=== PATIENT | male | born 1985 | race Caucasian/White ===

== ENCOUNTER 2019-08-26 06:26 | Emergency (ER) | payer OTHER, BC, SELFPAY ==
--- NOTE | ~2019-08-26 | XR_ITS ---
XR humerus RT DATE: 08/26/2019 07:41 INDICATION: Fall. Mid arm pain. TECHNIQUE: 3 views COMPARISON: None FINDINGS: No fracture, dislocation, periosteal reaction or bone destruction. Normal alignment at the shoulder and elbow joints. IMPRESSION: Negative Reviewed, dictated and finalized at location A. IMPRESSION: Negative
[2019-08-26 06:22] VITALS: BP 136/86; PULSE 92; RESP 18; TEMP 36.8; O2SAT 97
--- NOTE | 2019-08-26 07:34 | ED.UPPEXIN ---
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 He rates the pain 8 out of 10, and has difficulty moving his arm. He is getting off the forklift with his right hand on the handle, when his foot slipped so he grabbed the wall with his left hand, twisting the right arm. He suspects it is a tendon injury. He has no medical problems,takes no prescription medications. He has had numerous surgeries on his left eye, and several right inguinal hernia surgeries. He has no allergies. He has not been sick in the last week or 2. He is single. MD complaint: injury to: right Onset (ago): hour(s) Other Extremity Injury: Right: arm Other injuries: none Related Data Allergies Allergy/AdvReac Type Severity Reaction Status Date / Time No Known Allergies Allergy Mild Verified 08/26/19 07:47 Review of Systems Review of Systems: Narrative: CONSTITUTIONAL: Denies fever, chills, or sweats. EYES: Denies visual changes, redness, or discharge. ENT: Denies rhinorrhea, congestion, sore throat, or otalgia. CARDIOVASCULAR: Denies chest pain, palpitations, or edema. RESPIRATORY: Denies cough or dyspnea. GASTROINTESTINAL: Denies abdominal pain, nausea, vomiting, or diarrhea. GENITOURINARY: Denies dysuria or hematuria. SKIN: Denies rash or itching. MUSCULOSKELETAL: sore right arm and unable to move the elbow. NEUROLOGIC: Denies headache, numbness, or weakness. PSYCHIATRIC: Denies anxiety or depression. All systems reviewed & are unremarkable except as noted in HPI and below PMFSH Past Medical History Medical History (Updated 08/26/19 @ 07:49 by Karen Saucedo MD) History of inguinal hernia Inguinal hernia Surgical History Surgical History History of inguinal hernia repair Social History Social History (Updated 08/26/19 @ 07:45 by Karen Saucedo MD) Smoking status: Never smoker Alcohol intake: never Substance use: never Exam Narrative: Exam Narrative: GENERAL: Well-appearing, well-nourished, and in no acute distress.Red headed and freckles HEAD: Normocephalic, atraumatic. EYES: PERRLA and EOMI. ENT: Nares clear, no rhinorrhea or epistaxis. Mucous membranes moist. NECK: Supple. CHEST: Clear to auscultation. No respiratory distress. HEART: Regular rate and rhythm. No murmur heard. Normal peripheral pulses. ABDOMEN: Soft, nontender, nondistended, normal active bowel sounds. EXTREMITIES: Tenderness in the right upper arm and elbow, decreased range of motion right elbow. SKIN: Warm, dry, no rash. NEURO: No focal deficits. Alert and oriented x3. PSYCH: Normal mood and affect. Const: General: no acute distress Course Reevaluation(s) Reevaluation #1: Explained to the patient that he should wear the sling until seen by Ortho, he request nausea medicine to go with the Percocet, and a work note for a week. Date: 08/26/19 Time: 09:21 Vital Signs Vital signs: Vital Signs Temperature 98.2 F 08/26/19 06:22 Pulse Rate 92 08/26/19 06:22 Respiratory Rate 18 08/26/19 06:22 Blood Pressure 136/86 08/26/19 06:22 Pulse Oximetry 97 08/26/19 06:22 Temperature 98.1 F 08/26/19 08:48 Pulse Rate 81 08/26/19 08:48 Respiratory Rate 18 08/26/19 08:48 Blood Pressure 149/82 H 08/26/19 08:48 Pulse Oximetry 97 08/26/19 08:48 Procedures Orthopedic Splinting/Casting Injury #1: Splinting/Casting Date: 08/26/19 Splinting/Casting Time: 09:27 Side: right Upper Extremity Injury Location: upper arm Upper Extremity Immobilizer: sling/shoulder immobilizer Pre-Formed: sling Pre-Procedure Neuro Vascular Exam: normal Post-Procedure Neuro Vascular Exam: normal Discharge Plan Disch
[2019-08-26] MEDS: MORPHINE SULFATE 4 MG/ML INJ IV PUSH (07:43)
[2019-08-26 07:48] VITALS: BP 157/81; PULSE 87; RESP 16; TEMP 36.4; O2SAT 98
[2019-08-26 08:48] VITALS: BP 149/82; PULSE 81; RESP 18; TEMP 36.7; O2SAT 97
--- NOTE | 2019-08-26 08:49 | PC.NURSE ---
Patient is able to move arm at this time. Patient reached up to rub his nose with his right hand without grimace.
[2019-08-26 09:45] VITALS: BP 153/61; PULSE 79; RESP 18; TEMP 36.2; O2SAT 97
== END 2019-08-26 09:45 | disposition home or self-care (01) ==
PROVIDERS: Emergency Provider Emergency Medicine
DX: S46.211A Strain of muscle, fascia and tendon of other parts of biceps, right arm, initial encounter (principal); W24.0XXA Contact with lifting devices, not elsewhere classified, initial encounter
CPT/HCPCS: 73060; 96374; 99284; A4565; J2270

== ENCOUNTER 2019-09-13 07:26 | Outpatient (CLI) | payer OTHER, BC, SELFPAY ==
--- NOTE | ~2019-09-13 | MR_ITS ---
EXAMINATION: MR chest wo con DATE: 09/13/2019 09:02 INDICATION: Right upper arm injury and pain. TECHNIQUE: Magnetic resonance imaging (MRI) of the chest was performed without intravenous contrast. Sequences included axial, sagittal, and coronal T1-weighted FSE and PD-weighted FS FSE. COMPARISON: Right humerus radiographs 08/26/2019 FINDINGS: Bone alignment is normal. No fracture. The right pectoralis major and pectoralis minor musc les are normal. The rotator cuff muscle bellies are normal. The rotator cuff tendons are not well aditi luated. There is no hematoma, abnormal mass, or lymphadenopathy. IMPRESSION: 1. Normal right pectoralis major and minor muscles. Reviewed, dictated and finalized at location A.
== END 2019-09-13 07:27 | disposition home or self-care (01) ==
PROVIDERS: Visit Provider Orthopaedic Surgery
DX: M79.601 Pain in right arm (principal)
CPT/HCPCS: 71550

== ENCOUNTER 2019-09-19 20:19 | Outpatient (CLI) | payer OTHER, BC, SELFPAY ==
--- NOTE | ~2019-09-19 | MR_ITS ---
EXAMINATION: MR shoulder RT wo con DATE: 09/19/2019 20:59 INDICATION: Right shoulder pain. TECHNIQUE: Magnetic resonance imaging (MRI) of the right shoulder was performed without intravenous c ontrast. Sequences included axial PD-weighted FS FSE, coronal oblique PD-weighted FS FSE and T2-weigh miley FS FSE, and sagittal oblique T2-weighted FS FSE and T1-weighted FSE. COMPARISON: Right humerus radiographs 08/26/2019 FINDINGS: Coracoacromial arch: The acromion undersurface is flat in morphology (type I). The acromioclavicular joint is normal. Ther e is mild subacromial/subdeltoid bursitis. Rotator cuff: There is moderate supraspinatus and infraspinatus tendinopathy. Teres minor tendon is normal. Subscap ularis tendon is normal. No tear. The rotator cuff muscle bellies are normal. Biceps tendon and glenoid labrum: Biceps tendon is in bicipital groove. Intra-articular biceps tendon is normal. The glenoid labrum is normal. Fluid: There is no glenohumeral joint effusion. Bones/cartilage: Glenoid cartilage is normal. Humeral head cartilage is normal. IMPRESSION: 1. Moderate rotator cuff tendinopathy. No tear. 2. Mild subacromial/subdeltoid bursitis. Reviewed, dictated and finalized at location A.
== END 2019-09-19 20:20 | disposition home or self-care (01) ==
PROVIDERS: Visit Provider Orthopaedic Surgery
DX: M75.51 Bursitis of right shoulder (principal)
CPT/HCPCS: 73221

== ENCOUNTER 2020-06-11 03:41 | Emergency (ER) | payer OTHER, SELFPAY ==
--- NOTE | ~2020-06-11 | CT_ITS ---
EXAMINATION: CT abdomen pelvis wo con EXAM DATE: 06/11/2020 04:36 INDICATION: Right flank pain, history kidney stones. TECHNIQUE: Spiral CT of the abdomen and pelvis was performed without contrast. Axial, coronal and sag ittal images were reviewed. The dose-length product (DLP) for this examination was 1110.81 mGy-cm. The exposure was tailored according to patient size (auto mA exposure control), and iterative reconst ruction (ASIR) was used as additional dose reduction technique. There is no prior study for comparis on. FINDINGS: There is punctate 2 mm stone in the right ureterovesicular junction with minimal obstructiv e nephropathy. There is 4 mm right superior calyceal stone. There are 2 punctate left calyceal stones . The prostate is unremarkable. The bladder is unremarkable. The liver, spleen, adrenal glands and pancreas are unremarkable. Gallbladder is unremarkable. No biliary obstruction. There is no retro peritoneal or pelvic lymphadenopathy. The appendix is normal. There is mild descending colonic colonic diverticulosis. There is no adjacen t inflammatory change to suggest diverticulitis. The stomach and small bowel are unremarkable. Ther e is expected amount of colonic stool. No free intraperitoneal gas. The heart is normal in size. There are no pericardial or pleural effusions. The lung bases are unremarkable. There are no osteo blastic or osteolytic lesions identified. IMPRESSION: 1. Punctate, 2 mm right UVJ stone, minimal obstructive nephropathy. 2. Bilateral nephrolithiasis. 3. Colonic diverticulosis. Reviewed, dictated and finalized at location D. PREVENTION INVESTIGATOR
[2020-06-11 03:44] VITALS: BP 126/97; PULSE 94; RESP 16; TEMP 36.4; O2SAT 100
[2020-06-11] MEDS: SODIUM CHLORIDE 0.9% IV 1,000 ML 999 ML IV CONT (04:00)
--- NOTE | 2020-06-11 04:00 | ED.GENADULT ---
HPI - General Adult General Chief complaint: Abdominal Pain Stated complaint: kidney stone Time Seen by Provider: 06/11/20 03:44 History of Present Illness HPI narrative: Patient is a 34-year-old gentleman who presents the emergency department with chief complaint of right flank pain. The patient reports that he had sudden onset pain in his right flank area reports that its not worsened by anything and not improved by anything. The patient states that he is unable to get comfortable reports he is a little nauseated after he started having symptoms. Patient states this feels similar to whenever he has had a kidney stone in the past patient reports with his previous kidney stones he was able to pass the stone on his own and did not require any surgical procedures. Related Data Allergies Allergy/AdvReac Type Severity Reaction Status Date / Time No Known Allergies Allergy Mild Verified 09/05/19 07:30 Review of Systems Review of Systems: Narrative: A 10 system review of systems was completed on the patient and is negative except for what is stated in the HPI. Nursing and ancillary documentation was reviewed. [facility] Past Medical History Medical History (Updated 06/11/20 @ 04:25 by Dontrell To MD) History of inguinal hernia Inguinal hernia Surgical History Surgical History History of inguinal hernia repair Family History Family History Mother Cancer Grandparent Cancer Social History Social History Smoking status: Never smoker Alcohol intake: never Substance use: never Additional living arrangements comments: lives with father Additional occupation/education comments: [employer] Gender identity (if verbalized by the patient): Male Exam Narrative: Exam Narrative: GENERAL: Well-appearing, well-nourished, and in no acute distress. HEAD: Normocephalic, atraumatic. EYES: PERRLA and EOMI. ENT: Nares clear, no rhinorrhea or epistaxis. Mucous membranes moist. NECK: Supple. CHEST: Clear to auscultation. No respiratory distress. HEART: Regular rate and rhythm. No murmur heard. Normal peripheral pulses. ABDOMEN: Soft, nontender, nondistended, normal active bowel sounds. EXTREMITIES: Normal range of motion. No edema. SKIN: Warm, dry, no rash. NEURO: No focal deficits. Alert and oriented x3. PSYCH: Normal mood and affect. Course Course Emergency Course: Patient is a 3 mm stone at the UVJ Vital Signs Vital signs: Vital Signs Temperature 36.4 C L 06/11/20 03:44 Pulse Rate 94 06/11/20 03:44 Respiratory Rate 16 06/11/20 03:44 Blood Pressure 126/97 H 06/11/20 03:44 Pulse Oximetry 100 06/11/20 03:44 Temperature 36.4 C L 06/11/20 03:44 Pulse Rate 97 06/11/20 05:32 Respiratory Rate 12 06/11/20 05:32 Blood Pressure 126/88 06/11/20 05:32 Pulse Oximetry 97 06/11/20 05:32 Medical Decision Making Vital Signs Vital Signs: Vital Signs Temperature 36.4 C L 06/11/20 03:44 Pulse Rate 94 06/11/20 03:44 Respiratory Rate 16 06/11/20 03:44 Blood Pressure 126/97 H 06/11/20 03:44 Pulse Oximetry 100 06/11/20 03:44 Temperature 36.4 C L 06/11/20 03:44 Pulse Rate 97 06/11/20 05:32 Respiratory Rate 12 06/11/20 05:32 Blood Pressure 126/88 06/11/20 05:32 Pulse Oximetry 97 06/11/20 05:32 Lab Data Result diagrams: 06/11/20 04:03 06/11/20 04:52 Labs: Lab Results 06/11/20 06/11/20 06/11/20 Range/Units 04:03 04:52 05:27 WBC 10.8 H (4.5-10.0) K/mm3 RBC 5.45 (4.6-6.20) M/mm3 Hgb 15.7 (14.0-18.0) g/dL Hct 46.7 (42.0-52.0) % MCV 85.7 (80-100) fl MCH 28.8 (26-34) pg MCHC 33.6 (32-36) g/dl RDW 12.6 (11.5-14.5) % Plt Count 294 (150-375) k/mm3 MPV 11.1 H (7.4-10.4) fl [place]
[2020-06-11] MEDS: ONDANSETRON INJ 4 MG/2 ML VIAL IV PUSH ×3 (04:01→05:31)
[2020-06-11] MEDS: MORPHINE SULFATE (*CRX) 4 MG/ML INJ IV PUSH (04:01)
[2020-06-11 04:09] LABS: Basophils Absolute Auto 0.1 K/mm3 (0.0-0.1); Basophils Percent Auto 0.7 % (0.2-1.2); Eosinophils Absolute Auto 0.3 K/mm3 (0-0.3); Eosinophils Percent Auto 2.7 % (0-4.4); Hematocrit 46.7 % (42.0-52.0); Hemoglobin 15.7 g/dL (14.0-18.0); Immature Granulocyte Absolute 0.03 K/mm3 (0.00-0.031); Immature Granulocyte Percent A 0.3 % (0-0.5); Lymphocytes Absolute Auto 4.72 K/mm3 (0.9-3.2); Lymphocytes Percent Auto 43.5 % (18.3-44.2); Mean Corpuscular HGB Conc 33.6 g/dl (32-36); Mean Corpuscular Hemoglobin 28.8 pg (26-34); Mean Corpuscular Volume 85.7 fl (80-100); Mean Platelet Volume 11.1 fl (7.4-10.4); Monocytes Percent Auto 8.9 % (2.6-8.5); Neutrophils Absolute Auto 4.8 K/mm3 (1.3-6.7); Neutrophils Percent Auto 43.9 % (45.5-73.1); Platelet Count Result 294 k/mm3 (150-375); Red Blood Count 5.45 M/mm3 (4.6-6.20); Red Cell Distribution Width 12.6 % (11.5-14.5); White Blood Count 10.8 K/mm3 (4.5-10.0)
--- NOTE | 2020-06-11 04:10 | PC.NURSE ---
Pt. in pain, unable to sit still. cannot get ct scan at this time.
--- NOTE | 2020-06-11 04:20 | PC.NURSE ---
Pt. called out stating he is still nauseated and in worse pain than before. ERP notified.
[2020-06-11] MEDS: HYDROmorphone HCL INJ (*CRX) 1 MG/ML SYR IV PUSH ×2 (04:27→05:30)
--- NOTE | 2020-06-11 04:30 | PC.NURSE ---
Pt. to ct
[2020-06-11 05:32] VITALS: BP 126/88; PULSE 97; RESP 12; O2SAT 97
[2020-06-11 05:34] LABS: Add Urine Microscopic? NO; Appearance Urine Clear (Clear); Bilirubin Urine Negative (Negative); Blood Urine Negative (Negative); Color Urine Yellow (Yellow); Glucose Urine UA Negative (Negative); Ketones Urine Negative (Negative); Leukocyte Esterase Ur Negative LEU/UL (Negative); Nitrate Urine Negative (Negative); Protein Urine Negative (Negative); Specific Grav Ur 1.019 (1.001-1.035); Urobilinogen Urine Negative mg/dL (<2.0)
[2020-06-11 05:36] LABS: Alanine Aminotransferase 23 U/L (4-50); Albumin Level 3.8 g/dL (3.5-5.1); Alkaline Phosphatase 51 U/L (38-126); Anion Gap 6 mmol/L (8-16); Aspartate Amino Transferase 23 U/L (17-59); Bilirubin,Total 0.5 mg/dL (0.2-1.3); Blood Urea Nitrogen 10 mg/dL (9-20); Calcium 8.6 mg/dL (8.4-10.2); Carbon Dioxide 22 mmol/L (22-30); Chloride 108 mmol/L (98-107); Estimated CRCL calculation 135 ml/min; Estimated Glomerular Filt Rate > 60; Glucose 111 mg/dL (75-110); Lipase 58 U/L (23-300); Potassium 3.8 mmol/L (3.4-5.0); Sodium 136 mmol/L (137-145)
[2020-06-11] MEDS: TAMSULOSIN HCL 0.4 MG CAPSULE PO (05:55)
[2020-06-11] MEDS: KETOROLAC 30 MG/ML VIAL (*BKC) IV PUSH (05:55)
== END 2020-06-11 05:55 | disposition home or self-care (01) ==
PROVIDERS: Emergency Provider Emergency Medicine
DX: N20.2 Calculus of kidney with calculus of ureter (principal); K57.90 Diverticulosis of intestine, part unspecified, without perforation or abscess without bleeding
CPT/HCPCS: 36415; 74176; 80053; 81003; 83690; 85025; 96374; 96375; 96376; 99284; A9270; J1170; J1885; J2270; J2405; J7030

== ENCOUNTER 2021-05-04 23:58 | Emergency (ER) | payer OTHER, SELFPAY ==
--- NOTE | ~2021-05-04 | CT_ITS ---
EXAMINATION: CT abdomen pelvis wo con DATE: 05/05/2021 03:52 INDICATION: Right flank pain. History kidney stones. TECHNIQUE: Computed tomography (CT) of the abdomen and pelvis was performed without intravenous contr ast. Automated exposure control and iterative reconstruction technique were employed. Exam dose: 392 .11 mGy-cm total exam DLP. COMPARISON: June 11, 2020 CT abdomen pelvis FINDINGS: The lung bases are clear. Normal heart size. No pericardial or pleural effusion. The liver, gallbladder, bile ducts, spleen, pancreas, pancreatic duct and adrenal glands are unremark able. 4 mm right ureteropelvic junction calculus with mild associated right hydronephrosis, minimal right n ephromegaly and mild perinephric stranding. 3 mm and 2 punctate nonobstructing left renal calculi. No renal mass lesion is evident. Normal caliber of the abdominal aorta. No intraperitoneal or retroperitoneal or pelvic mass lesion or adenopathy or ascites is detected. Normal appendix. Diverticulosis of the left colon; no CT evidence of diverticulitis. No bowel obstruction, bowel wall thickening, pneumatosis or intraperitoneal free air. The urinary bladder and prostate gland are unremarkable. Included skeletal structures are unremarkable. IMPRESSION: 4 mm obstructing right ureteropelvic junction calculus Minimal left nonobstructive nephrolithiasis Diverticulosis of left colon Normal appendix Reviewed, dictated and finalized at Location A. Reviewed, dictated and finalized at location A. [employer]
[2021-05-05] VITALS (10 sets, daily range): BP systolic 113–150; BP diastolic 70–86; PULSE 86–103; RESP 17–18; TEMP 36.9; O2SAT 92–100
[2021-05-05] MEDS: ONDANSETRON INJ 4 MG/2 ML VIAL IV PUSH (03:56)
[2021-05-05] MEDS: SODIUM CHLORIDE 0.9% IV 1,000 ML 999 ML IV CONT (03:56)
[2021-05-05] MEDS: KETOROLAC 30 MG/ML VIAL (*BKC) IV PUSH (03:56)
[2021-05-05 04:35] LABS: Add Urine Microscopic? YES; Appearance Urine Cloudy (Clear); Bacteria Urine Trace /hpf; Bilirubin Urine Negative (Negative); Blood Urine 3+ (Negative); Color Urine Amber (Yellow); Glucose Urine UA Negative (Negative); Ketones Urine Negative (Negative); Leukocyte Esterase Ur Negative LEU/UL (Negative); Mucus Urine Few /lpf; Nitrate Urine Negative (Negative); Protein Urine 2+ mg/dL (Negative); RBC Urine >75 /hpf (0-2); Specific Grav Ur 1.018 (1.001-1.035); Urobilinogen Urine Negative mg/dL (<2.0)
[2021-05-05] MEDS: MORPHINE SULFATE (*CRX) 4 MG/ML INJ IV PUSH (04:50)
--- NOTE | 2021-05-05 05:26 | ED.GENADULT ---
HPI - General Adult General Chief complaint: Back Pain/Injury Stated complaint: flank pain Time Seen by Provider: 05/05/21 03:21 History of Present Illness HPI narrative: Patient is a 35-year-old male who presents ER with sudden onset right flank pain. Associate with nausea and vomiting. Feels like kidney stones has had in the past. No urinary frequency urgency or dysuria. No radiation to the abdomen or into the groin. No alleviating factors. Related Data Allergies Allergy/AdvReac Type Severity Reaction Status Date / Time No Known Allergies Allergy Mild Verified 06/12/20 10:48 Review of Systems Review of Systems: All systems reviewed & are unremarkable except as noted in HPI and below Constitutional: Constitutional: Denies chills, Denies fever(s) and Denies weakness ENT: Denies nasal congestion and Denies sore throat Cardiovascular: Cardiovascular: Denies chest pain, Denies rapid heart rate and Denies radiating jaw, neck or arm pain Respiratory: Respiratory: Denies cough and Denies dyspnea Gastrointestinal: Gastrointestinal: Denies abdominal pain, Reports nausea and Reports vomiting Genitourinary: Genitourinary: Denies dysuria, Denies urinary frequency and Denies urinary incontinence Musculoskeletal: Musculoskeletal: Reports back pain (Flank) [facility] Past Medical History Medical History (Updated 05/05/21 @ 05:36 by Onel Delgado MD) History of inguinal hernia Inguinal hernia Kidney stones Surgical History Surgical History (System 06/12/20 @ 10:48 by Modesta Marquez) History of inguinal hernia repair Family History Family History (System 06/12/20 @ 10:48 by Modesta Marquez) Mother Cancer Grandparent Cancer Social History Social History (System 06/12/20 @ 10:48 by Modesta Marquez) Smoking status: Never smoker Alcohol intake: never Substance use: never Additional living arrangements comments: lives with father Additional occupation/education comments: [employer] Gender identity (if verbalized by the patient): Male Exam Narrative: GENERAL: Uncomfortable-appearing, well-nourished, and vomiting. HEAD: Normocephalic, atraumatic. ENT: Mucous membranes moist. CHEST: Clear to auscultation. No respiratory distress. HEART: Regular rate and rhythm. Normal peripheral pulses. ABDOMEN: Soft, nontender, nondistended. Right CVA tenderness. EXTREMITIES: Normal range of motion. No edema. SKIN: Warm, dry, no rash. NEURO: Alert and oriented x3. PSYCH: Normal mood and affect. Course Course Emergency Course: Minimal improvement with Toradol, pain resolved with morphine. Informed of results. Discharge home. Recommend follow-up with urology. Vital Signs Vital signs: Vital Signs Temperature 98.5 F 05/05/21 00:00 Pulse Rate 103 H 05/05/21 00:00 Respiratory Rate 18 05/05/21 00:00 Blood Pressure 150/86 H 05/05/21 00:00 Pulse Oximetry 99 05/05/21 00:00 Temperature 98.5 F 05/05/21 00:00 Pulse Rate 86 05/05/21 03:56 Respiratory Rate 17 05/05/21 03:56 Blood Pressure 113/70 05/05/21 03:56 Pulse Oximetry 100 05/05/21 03:56 Medical Decision Making Vital Signs Vital Signs: Vital Signs Temperature 98.5 F 05/05/21 00:00 Pulse Rate 103 H 05/05/21 00:00 Respiratory Rate 18 05/05/21 00:00 Blood Pressure 150/86 H 05/05/21 00:00 Pulse Oximetry 99 05/05/21 00:00 Temperature 98.5 F 05/05/21 00:00 Pulse Rate 86 05/05/21 03:56 Respiratory Rate 17 05/05/21 03:56 Blood Pressure 113/70 05/05/21 03:56 Pulse Oximetry 100 05/05/21 03:56 Lab Data Labs: Lab Results 05/05/21 Range/Units 04:16 Urine Color Avis (Yellow) Urine Appearance Cloudy H (Clear) Urine pH 6.0 (5.0-9.0) Ur Specific Mason 1.018 (1.001-1.035) Urine Protein 2+ H (Negative) mg/dL Urine Glucose (UA) Negative (Negative) mg/dL Urine Ketones Negative (Negative) mg/dL Ur Blood (Man) 3+ H (Negative) Urine
== END 2021-05-05 06:23 | disposition home or self-care (01) ==
PROVIDERS: Emergency Provider Emergency Medicine
DX: N20.2 Calculus of kidney with calculus of ureter (principal); Z87.442 Personal history of urinary calculi; K57.90 Diverticulosis of intestine, part unspecified, without perforation or abscess without bleeding
CPT/HCPCS: 74176; 81001; 96361; 96374; 96375; 99284; J1885; J2270; J2405; J7030

== ENCOUNTER 2021-05-08 11:32 | Outpatient (CLI) | payer OTHER, SELFPAY ==
--- NOTE | ~2021-05-08 | XR_ITS ---
EXAMINATION: XR abdomen/kub 1V INDICATION: Calcium kidney stones TECHNIQUE: Supine views of the abdomen were obtained on 2 radiographs. COMPARISON: 05/05/2021 FINDINGS: There is a 3 mm stone proximal right ureter overlying the right L3 transverse process. A 2 mm stone is present in the left mid kidney. The bowel gas pattern is normal. The visualized osseous s tructures are unremarkable. IMPRESSION: 1. 3 mm stone in the proximal right ureter. 2. Left nephrolithiasis. Reviewed, dictated and finalized at location F. ENGINEER
== END 2021-05-08 11:33 | disposition home or self-care (01) ==
PROVIDERS: Visit Provider Urology
DX: N20.1 Calculus of ureter (principal)
CPT/HCPCS: 74018

== ENCOUNTER 2021-05-08 12:11 | Outpatient (CLI) | payer OTHER, SELFPAY ==
[2021-05-08 12:40] LABS: EDCOVIDSCREEN Negative (Negative)
== END 2021-05-08 12:12 | disposition home or self-care (01) ==
LOC: ANHSURGERY 12:15
PROVIDERS: Visit Provider Urology
DX: Z01.812 Encounter for preprocedural laboratory examination (principal); Z20.822 Contact with and (suspected) exposure to COVID-19
CPT/HCPCS: 87426; C9803

== ENCOUNTER 2021-05-09 01:30 | Day surgery (SDC) | payer OTHER, SELFPAY ==
[2021-05-08 14:31] VITALS: BMI 32.3
--- NOTE | 2021-05-08 14:34 | PC.NURSE ---
Report to the Outpatient Waiting Room, entrance under the green pavilion located off [facility], at time __0815 on date _05/09/21 . OR Time: 1015 . - You and your visitor will be asked a series of questions to screen for COVID 19 for your protection. - A mask is required within the hospital. - Only one visitor is allowed at this time. Patient visitors will be guided where to wait when not with patient. Preoperative COVID Testing Requirements: No COVID Test needed if: (proof is required; if not received patient will have Rapid Test prior to entry) - Patient has received COVID Vaccine at least 14 days prior to procedure date or - Patient has positive COVID test result within last 90 days of surgery date. COVID Test needed if above criteria is not met If not COVID vaccinated a COVID test must be conducted within 72 hours of surgery and patient is asked to isolate self from time of testing until procedure. You will go to the [facility] [employer] [facility] for your COVID testing. The [employer] [facility] site is located at the corner of [address] [facility]. You will only be called if COVID results are positive and your surgeon may reschedule your elective surgery date. Patients may have clear liquids (water, carbonated beverages, clear teas, apple juice) until 3 hours prior to surgery with a maximum of 20 ounces. - No food from midnight until time of surgery - Infants may have breast milk until 4 hours before surgery, formula 6 hours prior to surgery. - Children will be allowed to drink immediately following surgery. If applicable, please bring a bottle or sippy cup to assist with drinking. Juice, water, soda, and popsicles are readily available. For infants on formula, please bring formula the day of surgery. Pacifiers are allowed. Take the following medications with a SIP of water the morning of surgery: NONE Medications to discontinue per physician NONE Date to take last dose Please no make-up, nail kazakh, hairspray, perfume, deodorant, or body powder the day of surgery. No jewelry (including any body piercings) or valuables the day of surgery, leave them at home. Please take a shower or bath the night before, or the morning of, surgery with an antibacterial soap. Wear comfortable, loose fitting clothing. Children are encouraged to wear pajamas. - Jewelry must be removed prior to entering the operating room. Rings and piercings that are not removed may be cut off. - The hospital will not accept responsibility for valuables. - Please leave all valuables, including medications, at home the day of surgery. If you are going home after surgery, a licensed highway truck driver must drive you home. - NO public transportation without another adult. - We recommend that an adult stay with you for 24 hours following discharge. - We also recommend that you do not drive, make important decision, drink alcoholic beverages, or take any drugs that were not prescribed by your health care provider for at least 24 hours after your discharge time. For Pediatric surgeries, we recommend two adults accompany the child home (only one inside the building at this time). Follow any additional instructions given to you from your surgeon. Telephone instructions given to __PATIENT and asked if any additional questions and then verbalized understanding. Patient advised to call surgeon office or pre surgery nurse liaison [phone] if any additional questions.
--- NOTE | 2021-05-08 15:14 | P.PNAN_ITS ---
Anes - Initial Pre Proc Eval Procedure: Operation Date: 05/09/21 10:15 Proposed Procedures p Right Extracorporeal Shock Wave Lithotripsy - Wilman Larry MD s Possible Cystoscopy, Right Ureteroscopy, Retrograde Pyelogram, Possible Stone Extraction, Possible Stent Placement, - Wilman Larry MD s Possible Holmium Laser Procedure - Wilman Larry MD Date/Time: 05/08/21 15:14 Surgeon: Wilman Larry MD Pre Op Diagnosis: right kidney stone Patient Data Age: 35 Gender: M Height: 1.85 m Weight: 111.15 kg Allergies Allergy/AdvReac Type Severity Reaction Status Date / Time No Known Allergies Allergy Mild Verified 05/08/21 14:20 Home Medications Medication Instructions Recorded Confirmed Type hydrocodone-acetaminophen 1 tablet PO Q6H PRN #14 tablet 05/05/21 05/08/21 Rx ondansetron 4 mg PO Q6H PRN #10 tablet 05/05/21 05/08/21 Rx tamsulosin 0.4 mg PO DAILY #7 cap 05/05/21 05/08/21 Rx Patient hx anesthesia problems: none Family hx anesthesia problems: none Results Review: All pre-operative results and documents have been reviewed as part of the pre-operative evaluation. [facility] Past Medical History Medical History (Updated 05/06/21 @ 00:00 by [facility]) History of inguinal hernia Inguinal hernia Kidney stones Surgical History Surgical History (System 06/12/20 @ 10:48 by Modesta Marquez) History of inguinal hernia repair Family History Family History (System 06/12/20 @ 10:48 by Modesta Marquez) Mother Cancer Grandparent Cancer Social History Social History (System 06/12/20 @ 10:48 by Modesta Marquez) Smoking status: Never smoker Alcohol intake: never Substance use: never Living arrangements: with family Additional living arrangements comments: lives with father Additional occupation/education comments: [employer] Gender identity (if verbalized by the patient): Male Spiritual care concerns: No Anes - Eval Final PreProcedure Day of Procedure 05/08/21 15:14 Patient weight: obese Heart: regular rate and rhythm Lungs: clear to auscultation and normal air movement Airway: Mallampati scale class II Neurological: alert and oriented Last oral intake: >/= 8 hours ASA classification: II Emergent: no Anesthetic plan: proceed Anesthesia type and monitoring: general LMA and standard monitoring Results Review: All pre-operative results and documents have been reviewed as part of the pre-operative evaluation. Informed Consent: The patient's anesthetic plan and its attendant risks and benefits were discussed with the patient/family/POA. Questions were solicited and answers provided to the satisfaction of the patient/family/POA.
[2021-05-09] VITALS (9 sets, daily range): BP systolic 121–159; BP diastolic 74–97; PULSE 77–99; RESP 10–165; TEMP 36.1–36.6; O2SAT 98–100
--- NOTE | ~2021-05-09 | XR_ITS ---
EXAMINATION: XR abdomen/kub 1V DATE: 05/09/2021 08:22 INDICATION: Right ureteral stone for planned shockwave lithotripsy. TECHNIQUE: A supine view of the abdomen on 2 radiographs was obtained. COMPARISON: 05/08/2021 FINDINGS: More caudal advancement of a 3 mm stone now in the mid right ureter projecting between the right tripp sverse processes of L4 and L5. Unchanged 2 mm stone projecting over the mid left kidney. Small amount of gas and stool scattered throughout the colon. No dilated gas-filled small bowel to suggest obstru ction. Bones are unremarkable. IMPRESSION: 1. 3 mm mid right ureteral stone and 2 mm stone at the mid left kidney. Reviewed, dictated and finalized at location A. TRON[facility]
[2021-05-09] MEDS: LACTATED RINGERS 1,000 ML 30 ML IV CONT ×2 (09:10→11:43)
[2021-05-09 09:33] LABS: Prothrombin Time 12.7 Seconds (11.1-14.7)
[2021-05-09 09:34] LABS: Partial Thromboplastin Time 28.1 SECONDS (22.3-36.8)
--- NOTE | 2021-05-09 09:40 | WPDHPUPDATE1 ---
History and Physical Update Update Date/Time: 05/09/21 09:40 History and Physical has been reviewed, including an updated exam of the patient. There are NO changes in the patient's condition. Risks, benefits, and alternatives have been discussed and questions answered. Patient agrees to proceed with procedure.
[2021-05-09] MEDS: fentaNYL CITRATE INJ (*CRX) 100 MCG/2 ML VIAL 25 MCG IV PUSH ×2 (09:55→10:02)
[2021-05-09] MEDS: ceFAZolin 2 GM/D5W 50 ML 2 GM/50 ML BAG IVPB (10:50)
--- NOTE | 2021-05-09 11:35 | W.PM.PROC2 ---
Procedure Note - Detailed Date of Procedure 05/09/21 Pre-op Diagnosis right ureteral stone Post-op Diagnosis same Procedure Performed Lithotripsy of right ureteral calculus Surgeon Wilman Larry MD Anesthesia general Description of Procedure Patient is taken to the operative suite correctly identified. Once anesthesia was obtained the stone was localized in both planes. Three thousand shocks were given to the stone. Patient tolerated procedure well without complications and was taken recovery room stable condition. He will follow up in 7-10 days with KUB. Drains No Packing No Pathology none sent Complications No immediate complications Condition stable Disposition PACU
[2021-05-09] MEDS: oxyCODONE HCL (*CRX) 5 MG TAB IR PO (13:06)
== END 2021-05-09 13:47 | disposition home or self-care (01) ==
PROVIDERS: Visit Provider Urology
PROC: (CPT 50590; principal; 2021-05-09 10:15)
DX: N20.2 Calculus of kidney with calculus of ureter (principal); K40.90 Unilateral inguinal hernia, without obstruction or gangrene, not specified as recurrent; R10.9 Unspecified abdominal pain; E66.9 Obesity, unspecified; Z68.30 Body mass index [BMI] 30.0-30.9, adult
CPT/HCPCS: 50590; 36415; 74018; 85610; 85730; 87426; A9270; C9803; J0690; J1100; J2250; J2405; J2704; J3010; J7120

== ENCOUNTER 2021-05-23 12:13 | Outpatient (CLI) | payer OTHER, SELFPAY ==
--- NOTE | ~2021-05-23 | XR_ITS ---
EXAMINATION: XR abdomen/kub 1V DATE: 05/23/2021 12:29 INDICATION: Calcium kidney stone 2 weeks post lithotripsy TECHNIQUE: A supine view of the abdomen on 2 radiographs was obtained. COMPARISON: 05/09/2021 FINDINGS: Unchanged 2 mm stone projecting over the interpolar region of the left kidney. No other evident uroli thiasis. Specifically the stone previously seen in the mid right ureter between the right L4 and L5 t ransverse processes is no longer visualized. No dilated loops of gas-filled bowel to suggest obstruct ion. Bones are unremarkable. IMPRESSION: 1. Unchanged 2 mm left renal stone. Prior mid right ureteral stone no longer visualized and has likel y passed. Reviewed, dictated and finalized at location [facility]. [facility] IMPRESSION: 1. Unchanged 2 mm left renal stone. Prior mid right ureteral stone no longer vi sualized and has likely passed.
== END 2021-05-23 12:14 | disposition home or self-care (01) ==
LOC: ANHIMG 12:17
PROVIDERS: Visit Provider Urology
DX: N20.0 Calculus of kidney (principal)
CPT/HCPCS: 74018

== ENCOUNTER 2022-11-29 01:41 | Emergency (ER) | payer OTHER, SELFPAY ==
[2022-11-29 01:47] VITALS: BP 161/97; PULSE 114; RESP 18; TEMP 36.9; O2SAT 98
[2022-11-29 01:54] VITALS: O2SAT 98
--- NOTE | 2022-11-29 01:55 | ED.GENADULT ---
HPI - General Adult General Chief complaint: Wound/Laceration Stated complaint: laceration Time Seen by Provider: 11/29/22 01:50 History of Present Illness HPI narrative: This is a 36-year-old male presenting ED with chief complaint of a skin injury. Patient has a growth on his back. He struck it on a piece of metal at work and has had some bleeding. He is able to control the bleeding at home but is slightly painful. Patient has appointment to have the growth surgically removed on Wednesday. He has asked this removed today. No other injuries. Does not know his last tetanus was. Related Data Allergies Allergy/AdvReac Type Severity Reaction Status Date / Time No Known Allergies Allergy Mild Verified 11/29/22 02:00 PMFSH Past Medical History Medical History History of inguinal hernia Inguinal hernia Kidney stones Surgical History Surgical History History of inguinal hernia repair Family History Family History Mother Cancer Grandparent Cancer Social History Social History Smoking status: Never smoker Alcohol intake: never Substance use: never Living arrangements: with family Additional living arrangements comments: lives with father Occupation/Education: occupation Additional occupation/education comments: [employer] Gender identity (if verbalized by the patient): Male Sexual Orientation (if Verbalized by the Patient): Straight or Heterosexual Spiritual care concerns: No Exam Narrative: APPEARANCE: No apparent distress. Head: atraumatic. EYES: EOMI, NOSE: Atraumatic NECK: Trachea midline RESPIRATORY: No increased rate of breathing CARDIOVASCULAR: RRR, ABDOMINAL: Non-distended MUSCULOSKELETAl: No obvious deformities NEURO: Alert. Moving 4/4 extremities SKIN:: 1.5 x 1.5 cm wart like growth coming off the patient's back with a mild abrasion. no bleeding. PSYCHIATRIC: Normal affect Course Vital Signs Vital signs: Vital Signs Temperature 98.4 F 11/29/22 01:47 Pulse Rate 114 H 11/29/22 01:47 Respiratory Rate 18 11/29/22 01:47 Blood Pressure 161/97 H 11/29/22 01:47 Pulse Oximetry 98 11/29/22 01:47 Oxygen Delivery Room Air 11/29/22 01:47 Temperature 98.4 F 11/29/22 01:47 Pulse Rate 114 H 11/29/22 01:47 Respiratory Rate 18 11/29/22 01:47 Blood Pressure 161/97 H 11/29/22 01:47 Pulse Oximetry 98 11/29/22 01:47 Oxygen Delivery Room Air 11/29/22 01:47 Medical Decision Making [facility] Narrative Medical decision making narrative: -Presentation: 36-year-old presenting with a damage to a skin growth on his back. No serious injury/ laceration requiring repair.Patient has appointment with a specialist to have the growth removed later this week. 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 -RX Motrin, Tylenol Vital Signs Vital Signs: Vital Signs Temperature 98.4 F 11/29/22 01:47 Pulse Rate 114 H 11/29/22 01:47 Respiratory Rate 18 11/29/22 01:47 Blood Pressure 161/97 H 11/29/22 01:47 Pulse Oximetry 98 11/29/22 01:47 Oxygen Delivery Room Air 11/29/22 01:47 Temperature 98.4 F 11/29/22 01:47 Pulse Rate 114 H 11/29/22 01:47 Respiratory Rate 18
[2022-11-29 02:00] VITALS: O2SAT 98
[2022-11-29 02:01] VITALS: BP 138/106; PULSE 100; RESP 17; O2SAT 96
[2022-11-29] MEDS: ACETAMINOPHEN 500 MG TABLET 1000 MG PO (02:05)
[2022-11-29] MEDS: TETANUS,DIPHTHERIA,AC PERTUSSIS ADULT (0.5 ML) BOOSTRIX IM (02:05)
[2022-11-29] MEDS: IBUPROFEN 400 MG TABLET 800 MG PO (02:05)
== END 2022-11-29 02:17 | disposition home or self-care (01) ==
PROVIDERS: Emergency Provider Emergency Medicine
DX: S20.412A Abrasion of left back wall of thorax, initial encounter (principal); Z23 Encounter for immunization; Z87.442 Personal history of urinary calculi; W22.8XXA Striking against or struck by other objects, initial encounter
CPT/HCPCS: 90471; 90715; 99283; A9270

== ENCOUNTER 2022-12-02 08:05 | Emergency (ER) | payer OTHER, SELFPAY ==
[2022-12-02 08:07] VITALS: BP 148/98; PULSE 97; RESP 18; TEMP 36.3; O2SAT 100
--- NOTE | 2022-12-02 09:00 | ED.GENADULT ---
HPI - General Adult General Chief complaint: Skin/Abscess/Foreign Body Stated complaint: Glued injury bleeding Time Seen by Provider: 12/02/22 08:23 History of Present Illness HPI narrative: Patient is a 36-year-old male who presents ER with a bleeding skin mass. Patient reports mass is developed rapidly over the last 3 months. He accidentally rubbed it at work and began bleeding several days ago. He came to the ER and had some skin glue placed on it and then a Band-Aid. Each time he removes a Band-Aid it starts to bleed and he has been bleeding through shirts. He also sleeps on his back and causes it to bleed as well. No pain. No blood thinners. No fevers or chills or sweats. He has follow-up with his PCP in the next 2 weeks but does not feel he can wait that long. Related Data Home Medications Medication Instructions Recorded Confirmed No Home Medications 12/02/22 12/02/22 Allergies Allergy/AdvReac Type Severity Reaction Status Date / Time No Known Allergies Allergy Mild Verified 12/02/22 14:10 Review of Systems Constitutional: Constitutional: Denies chills, Denies fatigue and Denies fever(s) ENT: Denies nasal congestion and Denies sore throat Cardiovascular: Cardiovascular: Denies chest pain, Denies rapid heart rate and Denies radiating jaw, neck or arm pain Respiratory: Respiratory: Denies cough and Denies dyspnea Gastrointestinal: Gastrointestinal: Denies abdominal pain, Denies nausea and Denies vomiting Integumentary/Breasts: Skin/Breast: Denies erythema and Denies rash Comments: Lesion that is bleeding PMFSH Past Medical History Medical History History of inguinal hernia Inguinal hernia Kidney stones Surgical History Surgical History History of inguinal hernia repair Family History Family History Mother Cancer Grandparent Cancer Social History Social History Smoking status: Never smoker Alcohol intake: never Substance use: never Living arrangements: with family Additional living arrangements comments: lives with father Occupation/Education: occupation Additional occupation/education comments: [employer] Gender identity (if verbalized by the patient): Male Sexual Orientation (if Verbalized by the Patient): Straight or Heterosexual Spiritual care concerns: No Exam Narrative: GENERAL: Well-appearing, well-nourished, and in no acute distress. HEAD: Normocephalic, atraumatic. ENT: Mucous membranes moist. SKIN: Warm, dry, no rash. 2.5 cm in diameter skin mass with a 1 cm diameter stalk to the left lower back. Evidence of recent bleeding. No obvious laceration or sores. Scattered scabs along the periphery of the lesion. NEURO: Alert and oriented x3. PSYCH: Normal mood and affect. Course Course Emergency Course: Wound no longer bleeding. Consulted general surgery, Dr. Newberry, who has come down to see the patient. Patient will be seen in outpatient setting to have the lesion removed. A nonadherent dressing has been applied patient will be given a day off from work. Vital Signs Vital signs: Vital Signs Temperature 97.3 F L 12/02/22 08:07 Pulse Rate 97 12/02/22 08:07 Respiratory Rate 18 12/02/22 08:07 Blood Pressure 148/98 H 12/02/22 08:07 Pulse Oximetry 100 12/02/22 08:07 Temperature 98.1 F 12/02/22 11:03 Pulse Rate 90 12/02/22 11:03 Respiratory Rate 18 12/02/22 11:03 Blood Pressure 145/95 H 12/02/22 11:03 Pulse Oximetry 100 12/02/22 11:03 Medical Decision Making Vital Signs Vital Signs: Vital Signs Temperature 97.3 F L 12/02/22 08:07 Pulse Rate 97 12/02/22 08:07 Respiratory Rate 18 12/02/22 08:07 Blood Pressure 148/98 H 12/02/22 08:07 Pulse Oximetry 100 12/02/22 08:07 Temper
--- NOTE | 2022-12-02 10:57 | WPDCN ---
Assessment and Plan Assessment and plan (1) Hemorrhage of skin lesion: Code(s): R23.3 - Spontaneous ecchymoses Status: Acute Assessment and Plan: The patient has a bleeding pedunculated skin lesion on the left lower back region. It is on a stalk that at the base is not involved with the ulceration. The base diameter on the stock is approximately 1cm but the larger portion of the pedunculated skin lesion is about 2.5cm in diameter. It is most likely a benign skin lesion with ulceration from contact irritation and pressure from lying on his back and rubbing from his clothes. however he states that has rapidly enlarged the past 3 months and so the possibility of a basal cell or some squamous cell carcinoma of this skin lesion is not excluded. I recommended excision of the skin lesion in the operating room under local anesthetic as an outpatient. He is agreeable to this plan will be discharged from the emergency room with some nonadherent dressings and I will set him up for an outpatient procedure within the next 1 to 2 weeks. HPI Data of Consult Date/Time: 12/02/22 10:57 Primary Care Provider: Tolu Walker MD Consult Narrative Reason for consult: Bleeding left low back skin lesion Narrative: Geovanni Tejeda is a 36 year old male who presented to the emergency room today with complaints of bleeding from a pedunculated left lower back skin lesion which was not present for about 3 months. He states that has rapidly enlarged over that time and due to pressure on the area and irritation from his closed it has started bleeding. He was in the emergency room 3 days ago with the same problem and got the bleeding stops and sent him home. He was scheduled to see his primary care physician in about 10 days but it started bleeding again today. He states that it bleeds enough to go through assured and run down his back. He denies any significant pain or prior his history of skin cancers. 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 He does not take any blood thinners. Review of Systems Review of Systems: The remainder of the review of systems to include constitutional, HEENT, cardiovascular, respiratory, GI, , integumentary, musculoskeletal, endocrine, immunologic, hematologic, psychiatric, and neurologic are all negative except for which is mentioned above in the HPI. [facility] Past Medical History Medical History History of inguinal hernia Inguinal hernia Kidney stones Surgical History Surgical History History of inguinal hernia repair Family History Family History Mother Cancer Grandparent Cancer Social History Social History Smoking status: Never smoker Alcohol intake: never Substance use: never Living arrangements: with family Additional living arrangements comments: lives with father Occupation/Education: occupation Additional occupation/education comments: [employer] Gender identity (if verbalized by the patient): Male Sexual Orientation (if Verbalized by the Patient): Straight or Heterosexual Spiritual care concerns: No Meds Home Medications and Allergies Home Medications Medication Instructions Recorded Confirmed Type hydrocodone 5 mg-acetaminophen 325 1 tablet PO Q6H PRN pain #14 tabs 05/05/21 05/09/21 Rx mg tablet ondansetron 4 mg disintegrating 4 mg PO Q6H PRN nausea and 05/05/21 05/09/21 Rx tablet vomiting #10 tabs tamsulosin 0.4 mg capsule 0.4 mg PO DAILY #7 caps 05/05/21 05/09/21 Rx acetaminophen 500 mg tablet 1,000 mg PO TID PRN [place] 7 days #42 11/29/22 Rx tabs ibuprofen 800 mg tablet 800 mg PO TID PRN pain 7 days #21 11/29/22 Rx tabs Allergies Allergy/AdvReac Type Severity Reaction Status Date / Time No Known Allergies Allergy Mild Verified 11/29
[2022-12-02 11:03] VITALS: BP 145/95; PULSE 90; RESP 18; TEMP 36.7; O2SAT 100
== END 2022-12-02 11:04 | disposition home or self-care (01) ==
PROVIDERS: Emergency Provider Emergency Medicine; PCP Emergency Medicine
DX: L98.9 Disorder of the skin and subcutaneous tissue, unspecified (principal); Z87.442 Personal history of urinary calculi
CPT/HCPCS: 99281

== ENCOUNTER 2022-12-04 00:43 | Day surgery (SDC) | payer OTHER, SELFPAY ==
[2022-12-02 14:16] VITALS: BMI 31.2
--- NOTE | 2022-12-02 14:17 | PC.NURSE ---
Report to the Outpatient Waiting Room, entrance under the green pavilion located off [facility], at time _0800_ on date _[id number]_. Planned Procedure Time: _0900_. Time changes happen often and if your time is changed the preop area will call you the afternoon before. - You and your visitor will be asked to self-screen and do not enter if you have any COVID symptoms. - A mask is optional within the hospital at this time. Light breakfast OK. Take the following medications with a SIP of water the morning of surgery: None DO NOT STOP ANY OF YOUR OTHER PRESCRIPTION MEDICATIONS PRIOR TO SURGERY ?EXCEPT THE FOLLOWING Medications to discontinue per physician None Date to take last dose Please no make-up, nail luxembourger, hairspray, perfume, deodorant, or body powder the day of surgery. No jewelry (including any body piercings) or valuables the day of surgery, leave them at home. Please take a shower or bath the night before, or the morning of, surgery with an antibacterial soap. Wear comfortable, loose fitting clothing. - Jewelry must be removed prior to entering the operating room. Rings and piercings that are not removed may be cut off. - The hospital will not accept responsibility for valuables. - Please leave all valuables, including medications, at home the day of surgery. Ok to drive self home after surgery. Follow any additional instructions given to you from your surgeon. If you or anyone in your household have experienced Covid symptoms in the past week, please notify your surgeon or the nurse liaison at the phone number below for possible testing. Telephone instructions given to ___Patient__and asked if any additional questions and then verbalized understanding. Patient advised to call surgeon office or pre surgery nurse liaison [phone] if any additional questions.
--- NOTE | 2022-12-04 07:29 | WPDHPUPDATE1 ---
History and Physical Update Update Date/Time: 12/04/22 07:29 History and Physical has been reviewed, including an updated exam of the patient. There are NO changes in the patient's condition. Risks, benefits, and alternatives have been discussed and questions answered. Patient agrees to proceed with procedure.
[2022-12-04 07:30] VITALS: BP 158/74; PULSE 88; RESP 16; TEMP 37.2; O2SAT 100
[2022-12-04 07:35] VITALS: BP 132/87; PULSE 99; RESP 16; O2SAT 98
[2022-12-04 07:45] VITALS: BP 135/90; PULSE 96; RESP 16; O2SAT 95
[2022-12-04 07:55] VITALS: BP 141/87; PULSE 95; RESP 16; O2SAT 96
[2022-12-04] MEDS: BUPivacaine HCL 0.5% PF 30 ML VIAL 20 ML INFILTRATE (08:00)
[2022-12-04] MEDS: LIDO 1%/EPINEPHRINE 1:100,000 20 ML VIAL INFILTRATE (08:00)
[2022-12-04 08:05] VITALS: BP 141/84; PULSE 97; RESP 16; O2SAT 95
[2022-12-04 08:11] VITALS: BP 138/95; PULSE 95; RESP 18; O2SAT 96
--- NOTE | 2022-12-04 08:18 | P.OP_ITS ---
Procedure Note - Detailed Date of Procedure 12/04/22 Pre-op Diagnosis Bleeding lower left back skin lesion Post-op Diagnosis Same Procedure Performed Excision left lower back skin lesion with 5cm intermediate layered wound closure Surgeon Andrew Newberry MD Anesthesia Local Indications Patient is a 36-year-old white male presented to the emergency room on at least 2 occasions complaining of bleeding skin lesion on his left lower back region. He stated this skin lesion rapidly enlarged with a course of about 3 months. He has no prior history of skin cancer. Presents now for excision the skin lesion. Findings The skin lesion was pedunculated ulcerated on top. The lesion measured 2x2cm which now down to a stalk which attached at the skin which was about 1cm in diameter. A 0.5cm circumferential excision margin on the base was performed full thickness into the subcutaneous tissues. Description of Procedure After informed consent was obtained patient brought to the operating room where he was placed in the prone position on operative table. The area the left lower back was then prepped and draped in usual sterile fashion. A time-out was then performed correctly identifying the patient as well as procedure to be performed. This was a local anesthetic procedure and no IV was started so no antibiotics were given. I then proceeded to tre out the ellipse with a circumferential 0.5cm margin on the base of the stalk of the skin lesion. The base of the skin lesion measured about 1cm in diameter. The larger polypoid portion of the skin lesion measured 2x2cm. Then anesthetized this area with 0 .5% Marcaine mixed with 1% lidocaine with some epinephrine. I then utilized a scalpel to incise the skin deeply down through the dermis into the subcutaneous tissues along this whole marked off ellipse of skin. Electrocautery was then used to completely excise off the ellipse of skin full-thickness. The specimen was then marked with a suture with the short suture being the superior margin and a long suture being the lateral margin. The specimen was then passed off table sent to pathology for examination. I then irrigated out with sterile saline solution. Hemostasis was then achieved utilizing electrocautery. A 5cm intermediate layered wound closure was then performed. Interrupted 2-0 Vicryl sutures were placed in the deeper subcutaneous tissues. This is a followed by layer of interrupted 3-0 Vicryl sutures in the more superficial subcutaneous tissues. The skin edges were then approximated utilizing interrupted 3-0 nylon sutures placed in a vertical mattress fashion. The incision closed nicely without any tension. There is then cleaned and then antibiotic ointment a sterile dressing was applied. The patient tolerated the procedure well no complications. All sponges, needles, and instrument counts were correct at the end procedure. EBL was _5__cc. The patient was awakened and taken to recovery in stable and satisfactory condition. Implants None Estimated Blood Loss 5 Drains No Packing No Pathology Yes (Skin lesion to pathology in formalin) Complications No immediate complications Condition Stable Disposition Same day [facility] Billing Surgery - Charge Forward: Surgery Billing
== END 2022-12-04 08:26 | disposition home or self-care (01) ==
PROVIDERS: PCP Emergency Medicine; Visit Provider Surgery
PROC: (CPT 11404; principal; 2022-12-04 07:30)
DX: L98.0 Pyogenic granuloma (principal)
CPT/HCPCS: 11404; 12032; 88305; A9270

== ENCOUNTER 2023-06-16 10:06 | Outpatient (CLI) | payer BC, SELFPAY ==
--- NOTE | 2023-06-16 10:30 | EST_ITS ---
Patient Info Name: Geovanni Tejeda Age: 37 years : 1985 Gender: Male Ht: 75 in Wt: 250 lbs BSA: 2.48 m2 HR: 173 bpm BP: 190 / 71 mmHg Technical Quality: Fair Exam Date: 06/16/2023 10:50 AM Exam Location: Echo Lab Patient Status: Outpatient Admit Date: 06/16/2023 Staff Ordering Physician: Greg Clemente DO Accounting Consultant: Lakesha Yanez RDCS Attending Provider: Greg Clemente DO Referring Physician: Bryn JOSHI; Exercise Technologist: Amber Cruz RDCS Exercise Physician: Greg Clemente DO Exam Type: CA stress echo Study Info Indications R07.9 - Chest pain, unspecified Treadmill exercise stress echocardiogram is performed. Summary 1. 1. Negative Rd exercise stress test for ischemic ST changes by ECG criteria. 2. 2. Reduced functional capacity, achieving 8 METs of workload. 3. 3. Appropriate HR response to exercise. 4. 4. Appropriate HR recovery at 1 minute post exercise. 5. 5. Negative stress echocardiogram for ischemia by wall motion analysis. 6. 6. Patient informed of the above results. Stress Echo Findings Left Ventricle Appropriate increase in LV endocardial thickening with systole. Appropriate augmentation of contractility with systole. No wall motion abnormality. Left Ventricle Normal LV systolic function, no wall motion abnormality. Protocol: Rd Stress ECG Details Stage: REST Duration (min): 0 min : 58 sec Speed (mph): 0.0 Grade (%): 0 HR (bpm): 107 SBP (mmHg): 123 DBP (mmHg): 84 METS: --- Stage: REST Duration (min): 10 min : 57 sec Speed (mph): 0.0 Grade (%): 0 HR (bpm): 112 SBP (mmHg): 123 DBP (mmHg): 84 METS: --- Stage: STAGE 1 Duration (min): 1 min : 0 sec Speed (mph): 1.7 Grade (%): 10 HR (bpm): 134 SBP (mmHg): 123 DBP (mmHg): 84 METS: --- Stage: STAGE 1 Duration (min): 2 min : 0 sec Speed (mph): 1.7 Grade (%): 10 HR (bpm): 137 SBP (mmHg): 123 DBP (mmHg): 84 METS: --- Stage: STAGE 1 Duration (min): 3 min : 0 sec Speed (mph): 1.7 Grade (%): 10 HR (bpm): 143 SBP (mmHg): 138 DBP (mmHg): 71 METS: --- Stage: STAGE 2 Duration (min): 1 min : 0 sec Speed (mph): 2.5 Grade (%): 12 HR (bpm): 150 SBP (mmHg): 138 DBP (mmHg): 71 METS: --- Stage: STAGE 2 Duration (min): 2 min : 0 sec Speed (mph): 2.5 Grade (%): 12 HR (bpm): 159 SBP (mmHg): 150 DBP (mmHg): 71 METS: --- Stage: STAGE 2 Duration (min): 3 min : 0 sec Speed (mph): 2.5 Grade (%): 12 HR (bpm): 164 SBP (mmHg): 150 DBP (mmHg): 71 METS: --- Stage: STAGE 3 Duration (min): 0 min : 34 sec Speed (mph): 0.0 Grade (%): 0 HR (bpm): 173 SBP (mmHg): 150 DBP (mmHg): 71 METS: --- Stage: RECOVERY Duration (min): 0 min : 25 sec Speed (mph): 0.0 Grade (%): 0 HR (bpm): 166 SBP (mmHg): 150 DBP (mmHg): 71 METS: --- Stage: RECOVERY Duration (min): 1 min : 25 sec Speed (mph): 0.0 Grade (%): 0 HR (bpm): 156 SBP (mmHg): 150 DBP (mmHg): 71 METS: --- -----
== END 2023-06-16 10:07 | disposition home or self-care (01) ==
LOC: ANHCARD 10:07
PROVIDERS: PCP Family Medicine; Visit Provider Internal Medicine Cardiovascular Disease
DX: R07.9 Chest pain, unspecified (principal)
CPT/HCPCS: 93351